=== PATIENT | male | born 1930 | race Caucasian/White ===

== ENCOUNTER 2018-06-07 23:38 | Inpatient (IN) | payer OTHER, MEDICAID, MEDICARE ==
[2018-06-08 00:03] LABS: ABNORMAL IP MESSAGE 1; HEMATOCRIT 17.6 % (42.0-52.0); MEAN CORPUSCULAR HEMOGLOBIN 38.2 pg (29.0-33.0); MEAN CORPUSCULAR VOLUME 115.8 fl (82.0-101.0); MEAN PLATELET VOLUME 9.6 fl (7.4-10.4); NUCLEATED RED BLOOD CELLS% 0.1 /100WBC (0.0-0.0); PLATELET COUNT 1480 10^3/UL (140-415); POSITIVE DIFF @See below; RED BLOOD COUNT 1.52 10^6/ul (4.70-6.10)
[2018-06-08 00:03] LABS: WHITE BLOOD COUNT 23.8 10^3/ul (4.8-10.8)
[2018-06-08] MEDS: SOD CHLORIDE 0.9% 1,800 ML IV (00:04)
[2018-06-08] MEDS: ACETAMINOPHEN 325 MG TAB PO (00:10)
[2018-06-08] MEDS: CEFEPIME 2GM/50 ML (PMX) 50 ML IVPB (00:11)
[2018-06-08 00:15] LABS: ADD MAN DIFF? YES; HEMOGLOBIN 5.8 g/dl (14.0-18.0)
[2018-06-08 00:16] LABS: ALANINE AMINOTRANSFERASE 50 IU/L (13-69); ALBUMIN 3.6 g/dl (3.3-4.9); ALBUMIN/GLOBULIN RATIO 0.78; ALKALINE PHOSPHATASE 113 IU/L (42-121); ANION GAP 5 (5-13); ASPARTATE AMINO TRANSFERASE 54 IU/L (15-46); BILIRUBIN,INDIRECT 0.5 mg/dl (0-1.1); BILIRUBIN,TOTAL 0.5 mg/dl (0.2-1.3); BLOOD UREA NITROGEN 34 mg/dl (7-20); CALCIUM 8.7 mg/dl (8.4-10.2); CARBON DIOXIDE 31 mmol/L (21-31); CHLORIDE 99 mmol/L (97-110); CREATININE 1.18 mg/dl (0.61-1.24); GLUCOSE 99 mg/dl (70-220); PATH REVIEW? YES-PATH TO CONFIRM; POTASSIUM 4.7 mmol/L (3.5-5.1); SODIUM 135 mmol/L (135-144); TOTAL PROTEIN 8.2 g/dl (6.1-8.1)
[2018-06-08 00:27] LABS: TROPONIN-I 0.024 ng/ml (0.000-0.120)
[2018-06-08 00:32] LABS: INR 1.53; PROTIME 18.5 Sec (11.9-14.9); PT RATIO 1.4
[2018-06-08 00:33] LABS: PARTIAL THROMBOPLASTIN TIME 38.8 Sec (23.0-35.0)
[2018-06-08 01:24] LABS: ANISOCYTOSIS 3+ (0-0); BAND NEUTROPHILS #M 4.5 10^3/ul (0.0-0.6); BAND NEUTROPHILS % (M) 19 % (0-4); BASOPHIL #M 0.2 10^3/ul (0.0-0.0); BASOPHILS % (M) 1 % (0-2); EOSINOPHILS % (M) 1 % (0-7); GIANT THROMBO% (M) 2 % (0-0); LYMPHOCYTES #M 0.9 10^3/ul (0.8-2.9); LYMPHOCYTES % (M) 4 % (15-51); MONOCYTE #M 1.6 10^3/ul (0.3-0.9); MONOCYTES % (M) 7 % (0-11); MYELOCYTES #M 0.2 10^3/ul (0.0-0.0); MYELOCYTES % (M) 1 % (0-0); PLATELET ESTIMATE INCREASED; POLYCHROMASIA 3+ (0-0); PROMYELOCYTES #M 0.2 10^3/ul (0-0); PROMYELOCYTES % (M) 1 % (0-0); SEG NEUT #M 16.8 10^3/ul (1.6-7.5); SEGMENTED NEUTROPHILS (M) % 66 % (39-77); SMUDGE%M 1 % (0-0)
[2018-06-08] MEDS: VANCOMYCIN 1 GM (PMX) 250 ML IVPB (01:48)
[2018-06-08] MEDS ORDERED: ONDANSETRON 4 MG TAB PO (02:30)
[2018-06-08] MEDS ORDERED: NACL 0.9% 3 ML SYG IV (02:30)
[2018-06-08] MEDS ORDERED: ACETAMINOPHEN 325 MG TAB PO (02:30)
[2018-06-08] MEDS ORDERED: VANCOMYCIN IV PER PHARMACY XX (02:30)
[2018-06-08] MEDS ORDERED: DOCUSATE SODIUM 100 MG CAP PO (02:30)
[2018-06-08] MEDS: CEFEPIME 1GM/50 ML (PMX) 50 ML IVPB ×3 (05:54→20:46)
[2018-06-08] MEDS: SOD CHLORIDE 0.9% 1,000 ML IV ×2 (05:57→12:04)
[2018-06-08 07:02] LABS: CREATINE KINASE 57 IU/L (23-200)
[2018-06-08 07:06] LABS: LACTIC ACID 1.2 mmol/L (0.5-2.0)
[2018-06-08 07:16] LABS: CK INDEX 3.5; CK-MB 2.02 ng/ml (0.0-2.4); TROPONIN-I 0.024 ng/ml (0.000-0.120)
[2018-06-08 08:11] LABS: ADD MAN DIFF? NO
[2018-06-08 08:15] LABS: WHITE BLOOD COUNT 19.3 10^3/ul (4.8-10.8)
[2018-06-08 08:15] LABS: ABNORMAL IP MESSAGE 1; BASOPHIL # 0.2 10^3/ul (0.0-0.1); EOSINOPHILS # 0.2 10^3/ul (0.0-0.5); EOSINOPHILS % 0.8 % (0.0-7.0); HEMATOCRIT 20.5 % (42.0-52.0); MEAN CORPUSCULAR HEMOGLOBIN 36.8 pg (29.0-33.0); MEAN CORPUSCULAR HGB CONC 32.7 g/dl (32.0-37.0); MEAN CORPUSCULAR VOLUME 112.6 fl (82.0-101.0); MEAN PLATELET VOLUME 9.8 fl (7.4-10.4); MONOCYTE # 1.3 10^3/ul (0.3-0.9); MONOCYTES % 6.8 % (0.0-11.0); NEUTROPHIL # 16.2 10^3/ul (1.6-7.5); NEUTROPHILS % 83.9 % (39.0-77.0); PLATELET COUNT 1238 10^3/UL (140-415); RED BLOOD COUNT 1.82 10^6/ul (4.70-6.10); RED CELL DISTRIBUTION WIDTH 31.4 % (11.5-14.5)
[2018-06-08 08:26] LABS: HEMOGLOBIN 6.7 g/dl (14.0-18.0)
[2018-06-08] MEDS: FAMOTIDINE 20 MG TAB PO ×2 (09:35→20:46)
[2018-06-08] MEDS: ASPIRIN (EC) 81 MG TAB PO (09:35)
[2018-06-08 09:51] LABS: IMMEDIATE SPIN CROSSMATCH 1 4
[2018-06-08 11:44] LABS: CREATINE KINASE 63 IU/L (23-200)
[2018-06-08 11:56] LABS: CK INDEX 3.4; CK-MB 2.17 ng/ml (0.0-2.4); TROPONIN-I 0.016 ng/ml (0.000-0.120)
[2018-06-08 17:23] LABS: ADD UMIC NO; UR ASCORBIC ACID 40 mg/dL (NEGATIVE); UR BILIRUBIN (Dip) NEGATIVE (NEGATIVE); UR BLOOD (Dip) NEGATIVE (NEGATIVE); UR CLARITY CLEAR (CLEAR); UR COLOR YELLOW (YELLOW); UR GLUCOSE (Dip) NEGATIVE (NEGATIVE); UR KETONES (Dip) NEGATIVE (NEGATIVE); UR LEUKOCYTE ESTERASE (Dip) NEGATIVE Leu/ul (NEGATIVE); UR NITRITE (Dip) NEGATIVE (NEGATIVE); UR SPECIFIC GRAVITY (Dip) 1.021 (1.003-1.030); UR TOTAL PROTEIN (Dip) NEGATIVE (NEGATIVE); UR UROBILINOGEN (Dip) 1+ mg/dL (NEGATIVE)
[2018-06-09] MEDS: SOD CHLORIDE 0.9% 1,000 ML IV ×2 (00:13→08:04)
[2018-06-09] MEDS: VANCOMYCIN 750 MG (PMX) 250 ML IVPB (02:17)
[2018-06-09] MEDS: CEFEPIME 1GM/50 ML (PMX) 50 ML IVPB ×2 (05:22→14:34)
[2018-06-09 06:54] LABS: ADD MAN DIFF? NO
[2018-06-09 06:59] LABS: ABNORMAL IP MESSAGE 1; BASOPHIL # 0.4 10^3/ul (0.0-0.1); BASOPHILS % 1.7 % (0.0-2.0); EOSINOPHILS # 0.4 10^3/ul (0.0-0.5); EOSINOPHILS % 1.8 % (0.0-7.0); HEMATOCRIT 28.6 % (42.0-52.0); HEMOGLOBIN 9.5 g/dl (14.0-18.0); LYMPHOCYTES # 0.9 10^3/ul (0.8-2.9); LYMPHOCYTES % 4.3 % (15.0-51.0); MEAN CORPUSCULAR HEMOGLOBIN 35.4 pg (29.0-33.0); MEAN CORPUSCULAR HGB CONC 33.2 g/dl (32.0-37.0); MEAN CORPUSCULAR VOLUME 106.7 fl (82.0-101.0); MEAN PLATELET VOLUME 9.5 fl (7.4-10.4); MONOCYTE # 1.6 10^3/ul (0.3-0.9); MONOCYTES % 7.8 % (0.0-11.0); NEUTROPHIL # 16.4 10^3/ul (1.6-7.5); NEUTROPHILS % 80.8 % (39.0-77.0); POSITIVE DIFF @See below; RED BLOOD COUNT 2.68 10^6/ul (4.70-6.10); RED CELL DISTRIBUTION WIDTH 29.1 % (11.5-14.5)
[2018-06-09 06:59] LABS: WHITE BLOOD COUNT 20.4 10^3/ul (4.8-10.8)
[2018-06-09 07:09] LABS: PLATELET COUNT 922 10^3/UL (140-415)
[2018-06-09 07:13] LABS: HEMOGLOBIN A1C 5.3 % (0-5.9)
[2018-06-09] MEDS: FAMOTIDINE 20 MG TAB PO (08:41)
[2018-06-09] MEDS: COLLAGENASE 5 GM (UD JAR) TOP (08:41)
[2018-06-09] MEDS: ASPIRIN (EC) 81 MG TAB PO (08:41)
== END 2018-06-09 16:49 | disposition home or self-care (01) | DRG 812 ==
LOC: E/R 23:38 → TEL 06-08 02:15
PROC: 30233N1 Transfusion of Nonautologous Red Blood Cells into Peripheral Vein, Percutaneous Approach (ICD-10-PCS; principal; 2018-06-08)
DX: D64.9 Anemia, unspecified (principal); D47.1 Chronic myeloproliferative disease; I10 Essential (primary) hypertension; Z66 Do not resuscitate; E78.5 Hyperlipidemia, unspecified; E03.9 Hypothyroidism, unspecified; K21.9 Gastro-esophageal reflux disease without esophagitis; Z79.82 Long term (current) use of aspirin; Z87.891 Personal history of nicotine dependence
CPT/HCPCS: 36415; 36430; 71045; 80053; 81003; 82550; 82553; 83036; 83605; 84443; 84484; 85025; 85610; 85730; 86850; 86900; 86901; 86920; 87040; 87081; 87086; 93005; 96365; 96375; 99291-25